=== PATIENT | female | born 1980 | race Caucasian/White ===

== ENCOUNTER 2016-10-01 13:09 | Observation (INO) | payer OTHER ==
--- NOTE | 2016-10-01 13:52 | PDOC ---
Attending Attestation - Resident Resident Name: Scott Skelton - ED Attending Attestation I have performed the following: I have examined & evaluated the patient, The case was reviewed & discussed with the resident, I agree w/resident's findings & plan, Exceptions are as noted - HPI HPI: 10/01/16 14:07 The patient is a 36 year old female with a significant past medical history of HIV/AIDS (last CD4 150 /VL 120) who presents with several days of right lower quadrant pain. She denies fever/chills. She denies urinary symptoms. She denies vaginal discharge. She denies anorexia. Laboratory Tests 07/10/16 07/10/16 12:00 12:00 Absolute CD4 [place] 150 L HIV-1 RNA (PCR) 120 10/01/16 15:39 10/01/16 15:40 - Physicial Exam PE: 10/01/16 13:52 Vitals noted She is well-appearing and in no acute distress She has mild right lower quadrant tenderness on deep palpation 10/01/16 14:07 10/01/16 14:11 10/01/16 16:22 10/01/16 16:24 - Medical Decision Making 10/01/16 14:11 Will obtain labs and UA 10/01/16 15:40 CBC noted She will need CT given her immunocompromised status 10/01/16 16:22 Elevated lipase noted She does not have any epigastric tenderness I do not suspect pancreatitis Will await CT and Chemistries 10/01/16 16:25 10/01/16 16:29 Case discussed in detail with oncoming Emergency Physician including history, physical exam and ancillary studies. Oncoming Emergency Physician has assumed care for the patient and will complete the evaluation and treatment. Discharge Disposition - Diagnosis Abdominal pain, right lower quadrant - Referrals Referrals: Bernie Kearney, GLASS BREAKER [Primary Care Provider] -
--- NOTE | 2016-10-01 14:35 | PDOC ---
History of Present Illness - General Chief Complaint: Pain Stated Complaint: ABD PAIN (PCP SENT) Time Seen by Provider: 10/01/16 13:52 History Source: Patient Exam Limitations: No Limitations - History of Present Illness Travel History: No Initial Comments: 10/01/16 14:23 36 yo F with significant PMHx of HTN, ETOH abuse, and HIV presents with 4 day history of RLQ abdominal pain. She describes constant non-radiating 8/10 stabbing RLQ abdominal pain brought on by palpation without alleviating factors. Denies urinary symptoms or vaginal bleeding or discharge. LMP 09/07/16 had Urine test at PCP office which was negative today. Denies fevers, chills, nausea,or vomiting. Timing/Duration: reports: constant, getting worse Quality: reports: moderate Abdominal Pain Onset Location: reports: RLQ Pain Radiation: reports: no radiation Activities at Onset: reports: none Past History - Travel Traveled outside of the country in the last 30 days: No Close contact w/someone who was outside of country & ill: No - Past Medical History Allergies/Adverse Reactions: Allergies Allergy/AdvReac Type Severity Reaction Status Date / Time No Known Allergies Allergy Verified 10/01/16 13:13 Home Medications: Ambulatory Orders Cholecalciferol (Vitamin D3) [Vitamin D3] 50,000 unit PO WEEKLY #4 capsule 07/17 Potassium Chloride [K-Dur -] 20 meq PO DAILY #3 tablet.er 07/17/16 Docusate Sodium [Colace -] 100 mg PO TID PRN #90 capsule 08/27/16 Elviteg/Klarissa/Emtric/Tenofo Ala [Genvoya Tablet] 1 each PO DAILY #30 tablet 08/27 Ferrous Sulfate [Feosol] 325 mg PO TID #90 tablet 08/27/16 Loratadine [Claritin -] 10 mg PO DAILY #30 tablet 08/27/16 Multivitamin,Ther and Minerals [Vitamin and Minerals] 1 each PO DAILY #30 tablet 08/27/16 Vitamin B Complex 1 each PO DAILY #30 capsule 08/27/16 Omeprazole 20 mg PO DAILY PRN #30 capsule. 09/16/16 Magnesium Oxide [Mag-Ox -] 400 mg PO BID #14 tablet 09/21/16 Anemia: Yes Diabetes: No HIV: Yes Psychiatric Problems: Yes (depression, suicide attempt) - Immunization History Immunization Up to Date: Yes - Psycho/Social/Smoking Cessation Hx Anxiety: No Suicidal Ideation: No Smoking History: Never smoked Have you smoked in the past 12 months: No Number of Cigarettes Smoked Daily: 0 If you are a former smoker, when did you quit?: 2 weeks ago Cigars Per Day: 0 Information on smoking cessation initiated: No Hx Alcohol Use: No Drug/Substance Use Hx: No Substance Use Type: None Hx Substance Use Treatment: No Review of Systems - Review of Systems Able to Perform ROS?: Yes Is the patient limited Wolof proficient: No ABD/GI: Yes: Abdominal cramping : No: Discharge, Flank Pain, Hematuria, Pain All Other Systems: Reviewed and Negative *Physical Exam - Vital Signs Last Vital Signs Temp Pulse Resp BP Pulse Ox 98.1 F 72 18 122/75 98 10/01/16 13:10 10/01/16 13:10 10/01/16 13:10 10/01/16 13:10 10/01/16 13:10 - Physical Exam General Appearance: Yes: Mild Distress HEENT: positive: EOMI, SETH Neck: positive: Supple Respiratory/Chest: positive: Lungs Clear, Normal Breath Sounds. negative: Respiratory Distress, Accessory Muscle Use Cardiovascular: positive: Regular Rhythm, Regular Rate, S1, S2. negative: Edema , JVD, Murmur Vascular Pulses: Dorsalis-Pedis (R): 2+, Doralis-Pedis (L): 2+ Gastrointestinal/Abdominal: positive: Normal Bowel Sounds, Soft, Guarding, Tenderness (RLQ) Musculoskeletal: positive: Normal Inspection. negative: CVA Tenderness Extremity: positive: Normal Capillary Refill, Normal Inspection, Normal Range of Motion Integumentary: positive: Normal Color, Dry, Warm. negative: Cyanotic, Erythema , Jaundice Neurologic: positive: food court team member II-XII NML intact, Fully Oriented, Alert, Normal Mood/ Affect, Normal Response, Motor Strength 10/02 ED Treatment Course - LABORATORY CBC & Chemistry Diagram: 10/01/16 14:40 10/01/16 14:40 - ADDITIONAL ORDERS Additional order review: 10/01/16 16:45 Laboratory Tests 05/14/14 07/10/16 13:05 12:00 Absolute CD4 [place] 150 L Hepatitis A Ab Total Positive H Medical Decision Making - Medical Decision Making 10/01/16 16:41 A:36 yo F with significant PMHx of HTN, ETOH abuse, and HIV presents with 4 day history of RLQ abdominal pain. will send labs to r/o appendicitis or infectious process. P: * CBC, CMP, UA, Lipase * CT abdomen and pelvis with IV/PO contrast *DC/Admit/Observation/Transfer Diagnosis at time of Disposition: Abdominal pain, right lower quadrant - Referrals Referrals: Bernie Kearney, DEVICE TEST ENGINEER [Primary Care Provider] -
[2016-10-01 15:23] LABS: BASOPHIL 1.1 % (0-2.0); EOSINOPHIL 4.3 % (0-4.5); MCH 32.9 pg (25.7-33.7); MCHC 33.7 g/dl (32.0-36.0); MEAN CELL VOLUME 97.6 fl (80-96); MEAN PLT VOLUME 8.4 fl (7.5-11.1); NEUTROPHILS 58.1 % (42.8-82.8); PLATELET COUNT 173 K/MM3 (134-434); RDW 18.7 % (11.6-15.6); WHITE BLOOD COUNT 2.8 K/mm3 (4.0-10.0)
[2016-10-01 15:59] LABS: ALBUMIN 2.9 g/dl (3.4-5.0); ALK PHOS 43 U/L (45-117); ANION GAP 7 (8-16); BILIRUBIN,TOTAL 0.3 mg/dL (0.2-1.0); C-REACTIVE PROTEIN < 0.3 MG/DL (0.00-0.3); CALCIUM 8.4 mg/dL (8.5-10.1); CO2 28 mmol/L (21-32); COCKROFT - GAULT 112.4465; CREATININE 0.7 mg/dL (0.55-1.02); GLUCOSE,RANDOM 82 mg/dL (74-106); SGOT/AST 33 U/L (15-37); SGPT/ALT 29 U/L (12-78); TOT PROT 8.3 g/dl (6.4-8.2)
[2016-10-01 16:29] LABS: URINE APPEARANCE CLEAR; URINE BILIRUBIN NEGATIVE (NEGATIVE); URINE BLOOD NEGATIVE (NEGATIVE); URINE COLOR LTYELLOW; URINE GLUCOSE (UA) NEGATIVE (NEGATIVE); URINE KETONE NEGATIVE (NEGATIVE); URINE NITRITE NEGATIVE (NEGATIVE); URINE PROTEIN NEGATIVE (NEGATIVE); URINE UROBILINOGEN NEGATIVE E.U./dl (0.2-1.0)
[2016-10-01 16:40] LABS: URINE LEUK ESTERASE 2+ (NEGATIVE)
[2016-10-01 18:11] LABS: URINE HYALINE CAST 1 /lpf; URINE RBC 1 /hpf (0-3); URINE WBC 2 /hpf (3-5)
--- NOTE | 2016-10-01 21:29 | PDOC ---
*Physical Exam - Vital Signs Last Vital Signs Temp Pulse Resp BP Pulse Ox 98.1 F 72 18 122/75 98 10/01/16 13:10 10/01/16 13:10 10/01/16 13:10 10/01/16 13:10 10/01/16 13:10 <Gaetano Keith - Last Filed: 10/01/16 22:26> - Vital Signs Last Vital Signs Temp Pulse Resp BP Pulse Ox 98.1 F 72 18 122/75 98 10/01/16 13:10 10/01/16 13:10 10/01/16 13:10 10/01/16 13:10 10/01/16 13:10 <Raúl Vogel - Last Filed: 10/01/16 23:44> ED Treatment Course - LABORATORY CBC & Chemistry Diagram: 10/01/16 14:40 10/01/16 14:40 - ADDITIONAL ORDERS Additional order review: Laboratory Results 10/01/16 10/01/16 10/01/16 15:23 14:40 14:40 Sodium 137 Potassium 3.6 Chloride 102 Carbon Dioxide 28 Anion Gap 7 L BUN 9 D Creatinine 0.7 Creat Clearance w eGFR > 60 Random Glucose 82 Calcium 8.4 L Total Bilirubin 0.3 D AST 33 ALT 29 D Alkaline Phosphatase 43 L D C-Reactive Protein < 0.3 Total Protein 8.3 H Albumin 2.9 L Lipase 440 H Urine Color Ltyellow Urine Appearance Clear Urine pH 7.0 D Urine Protein Negative Urine Glucose (UA) Negative Urine Ketones Negative Urine Blood Negative Urine Nitrite Negative Urine Bilirubin Negative Urine Urobilinogen Negative Ur Leukocyte Esterase 2+ H Urine RBC 1 Urine WBC 2 Ur Epithelial Cells Few Hyaline Casts 1 10/01/16 14:40 RBC 3.30 L MCV 97.6 H MCHC 33.7 RDW 18.7 H MPV 8.4 Neutrophils % 58.1 Lymphocytes % 25.2 D Monocytes % 11.3 H Eosinophils % 4.3 Basophils % 1.1 <Gaetano Keith - Last Filed: 10/01/16 22:26> - LABORATORY CBC & Chemistry Diagram: 10/01/16 14:40 10/01/16 14:40 - ADDITIONAL ORDERS Additional order review: Laboratory Results 10/01/16 10/01/16 10/01/16 15:23 14:40 14:40 Sodium 137 Potassium 3.6 Chloride 102 Carbon Dioxide 28 Anion Gap 7 L BUN 9 D Creatinine 0.7 Creat Clearance w eGFR > 60 Random Glucose 82 Calcium 8.4 L Total Bilirubin 0.3 D AST 33 ALT 29 D Alkaline Phosphatase 43 L D C-Reactive Protein < 0.3 Total Protein 8.3 H Albumin 2.9 L Lipase 440 H Urine Color Ltyellow Urine Appearance Clear Urine pH 7.0 D Urine Protein Negative Urine Glucose (UA) Negative Urine Ketones Negative Urine Blood Negative Urine Nitrite Negative Urine Bilirubin Negative Urine Urobilinogen Negative Ur Leukocyte Esterase 2+ H Urine RBC 1 Urine WBC 2 Ur Epithelial Cells Few Hyaline Casts 1 10/01/16 14:40 RBC 3.30 L MCV 97.6 H MCHC 33.7 RDW 18.7 H MPV 8.4 Neutrophils % 58.1 Lymphocytes % 25.2 D Monocytes % 11.3 H Eosinophils % 4.3 Basophils % 1.1 <Raúl Vogel - Last Filed: 10/01/16 23:44> Medical Decision Making - Medical Decision Making CBCD WBC 2.8 K/mm3 (4.0-10.0) L 10/01/16 14:40 RBC 3.30 M/mm3 (3.60-5.2) L 10/01/16 14:40 Hgb 10.9 GM/dL (10.7-15.3) 10/01/16 14:40 Hct 32.2 % (32.4-45.2) L 10/01/16 14:40 MCV 97.6 fl (80-96) H 10/01/16 14:40 MCHC 33.7 g/dl (32.0-36.0) 10/01/16 14:40 RDW 18.7 % (11.6-15.6) H 10/01/16 14:40 Plt Count 173 K/MM3 (134-434) 10/01/16 14:40 MPV 8.4 fl (7.5-11.1) 10/01/16 14:40 CMP Sodium 137 mmol/L (136-145) 10/01/16 14:40 Potassium 3.6 mmol/L (3.5-5.1) 10/01/16 14:40 Chloride 102 mmol/L (98-107) 10/01/16 14:40 Carbon Dioxide 28 mmol/L (21-32) 10/01/16 14:40 Anion Gap 7 (8-16) L 10/01/16 14:40 BUN 9 mg/dL (7-18) D 10/01/16 14:40 Creatinine 0.7 mg/dL (0.55-1.02) 10/01/16 14:40 Creat Clearance w eGFR > 60 (>60) 10/01/16 14:40 Calcium 8.4 mg/dL (8.5-10.1) L 10/01/16 14:40 Total Bilirubin 0.3 mg/dL (0.2-1.0) D 10/01/16 14:40 AST 33 U/L (15-37) 10/01/16 14:40 ALT 29 U/L (12-78) D 10/01/16 14:40 Alkaline Phosphatase 43 U/L (45-117) L D 10/01/16 14:40 Total Protein 8.3 g/dl (6.4-8.2) H 10/01/16 14:40 Albumin 2.9 g/dl (3.4-5.0) L 10/01/16 14:40 <Gaetano Keith - Last Filed: 10/01/16 22:26> *DC/Admit/Observation/Transfer - Attestations Scribe Attestion: 10/01/16 22:26 Documentation prepared by Gaetano Keith, acting as medical care manager for Raúl Vogel DO. <Gaetano Keith - Last Filed: 10/01/16 22:26> - Discharge Dispostion Admit: Yes - Attestations Physician Attestion: 10/01/16 21:29 I, Dr. Raúl Vogel, attest that this document has been prepared under my direction and personally reviewed by me in its entirety. I further attest, that it accurately reflects all work, treatment, procedures and medical decision -making performed by me. <Raúl Vogel - Last Filed: 10/01/16 23:44> Diagnosis at time of Disposition: Abdominal pain, right lower quadrant, Pancreatitis - Discharge Dispostion Condition at time of disposition: Unchanged/Unknown - Referrals Referrals: Christel,Bernie, INSURANCE ACCOUNT ASSISTANT [Primary Care Provider] - - Patient Instructions - Post Discharge Activity
--- NOTE | 2016-10-01 22:02 | HP ---
CHIEF COMPLAINT:RLQ Pain PCP: Bernie Kearney NP HISTORY OF PRESENT ILLNESS: Patient is a 36 year old female with significant PMH of HIV, HTN, Depression, Anemia & alcohol abuse (last binge drank 5 days ago) who comes from GARRY Kearney's office with abdominal pain. As per patient, she binge drank on Wednesday and woke up Wednesday with moderate RLQ pain and epigastric burning sensation. Patient reports pain was diffuse but concentrasted in RLQ, nonradiating, stabbing in quality & 8/10 in severity. She had an episode of vomiting that morning as well , nonbloody nonbilious. She also had 2-3 episodes of diarrhea as well on Wednesday. She states pain was present on Wednesday & Wednesday but started improving by Wednesday. Today, she visited her PCP who instructed her to come to ED. Denies fever, chills, SOB, chest pain, palpitations, headache, visual changes, diarrhea or constipation at present. No loss of appetite. LMP 09/07/2016 CITLALI SCORE 0 on admission [facility] course was notable for: (1)Lipase 440 (2)CT shows right adnexal cystic structure [id number] (3) NPO 7 IVF started Recent Travel: none reported PAST MEDICAL HISTORY: as above PAST SURGICAL HISTORY: none reported Social History: Smoking:none reported Alcohol: states she has been a heavy drinker "for a long time", last drank on Wednesday ("I had alot of drinks") Drugs:none reported Family History: patient unsure Allergies No Known Allergies Allergy (Verified 10/01/16 13:13) HOME MEDICATIONS: Home Medications Medication Instructions Recorded Cholecalciferol (Vitamin D3) 50,000 unit PO WEEKLY #4 capsule 07/17/16 [Vitamin D3] Potassium Chloride [K-Dur -] 20 meq PO DAILY #3 tablet.er 07/17/16 Docusate Sodium [Colace -] 100 mg PO TID PRN #90 capsule 08/27/16 Elviteg/Klarissa/Emtric/Tenofo Ala 1 each PO DAILY #30 tablet 08/27/16 [Genvoya Tablet] Ferrous Sulfate [Feosol] 325 mg PO TID #90 tablet 08/27/16 Loratadine [Claritin -] 10 mg PO DAILY #30 tablet 03/30/17 Multivitamin,Ther and Minerals 1 each PO DAILY #30 tablet 08/27/16 [Vitamin and Minerals] Vitamin B Complex 1 each PO DAILY #30 capsule 08/27/16 Omeprazole 20 mg PO DAILY PRN #30 capsule. 09/16/16 Magnesium Oxide [Mag-Ox -] 400 mg PO BID #14 tablet 09/21/16 REVIEW OF SYSTEMS CONSTITUTIONAL: Absent: fever, chills, diaphoresis, generalized weakness, malaise, loss of appetite, weight change HEENT: Absent: rhinorrhea, nasal congestion, throat pain, throat swelling, difficulty swallowing, mouth swelling, ear pain, eye pain, visual changes CARDIOVASCULAR: Absent: chest pain, syncope, palpitations, irregular heart rate, lightheadedness , peripheral edema RESPIRATORY: Absent: cough, shortness of breath, dyspnea with exertion, orthopnea, wheezing, stridor, hemoptysis GASTROINTESTINAL: (+) abdominal pain, Absent:abdominal distension, nausea, vomiting, diarrhea, constipation, melena, hematochezia GENITOURINARY: Absent: dysuria, frequency, urgency, hesitancy, hematuria, flank pain, genital pain MUSCULOSKELETAL: Absent: myalgia, arthralgia, joint swelling, back pain, neck pain SKIN: Absent: rash, itching, pallor HEMATOLOGIC/IMMUNOLOGIC: Absent: easy bleeding, easy bruising, lymphadenopathy, frequent infections ENDOCRINE: Absent: unexplained weight gain, unexplained weight loss, heat intolerance, cold intolerance NEUROLOGIC: Absent: headache, focal weakness or paresthesias, dizziness, unsteady gait, seizure, mental status changes, bladder or bowel incontinence PSYCHIATRIC: Absent: anxiety, depression, suicidal or homicidal ideation, hallucinations. PHYSICAL EXAMINATION Vital Signs - 24 hr 10/01/16 13:10 Temperature 98.1 F Pulse Rate 72 Respiratory 18 Rate Blood Pressure 122/75 O2 Sat by Pulse 98 Oximetry (%) GENERAL: Awake, alert, and fully oriented, in no acute distress. Eating chips in bed without pain. HEENT: Atraumatic, EOMI, PERRLA, No lymphadenopathy noted, dry membranes LUNGS: Breath sounds equal, clear to auscultation bilaterally. No wheezes, and no crackles. No accessory muscle use. HEART: Regular rate and rhythm, normal S1 and S2 without murmur, rub or gallop. ABDOMEN: Moderate tenderness to deep palpation only in RLQ. Soft, not distended with normoactive bowel sounds. No guarding, no rebound, no masses. No hepatomegaly or splenomegaly. MUSCULOSKELETAL: Normal range of motion at all joints. No bony deformities or tenderness. No CVA tenderness. UPPER EXTREMITIES: 2+ pulses, warm, well-perfused. No cyanosis. No clubbing. No peripheral edema. LOWER EXTREMITIES: 2+ pulses, warm, well-perfused. No calf tenderness. No peripheral edema. NEUROLOGICAL: Cranial nerves II-XII intact. Normal speech. Normal gait. PSYCHIATRIC: Cooperative. Good eye contact. Appropriate mood and affect. SKIN: Warm, dry, normal turgor, no rashes or lesions noted, normal capillary refill. Laboratory Results - last 24 hr 10/01/16 10/01/16 10/01/16 14:40 14:40 14:40 WBC 2.8 L RBC 3.30 L Hgb 10.9 Hct 32.2 L MCV 97.6 H MCHC 33.7 RDW 18.7 H Plt Count 173 MPV 8.4 Neutrophils % 58.1 Lymphocytes % 25.2 D Monocytes % 11.3 H Eosinophils % 4.3 Basophils % 1.1 Sodium 137 Potassium 3.6 Chloride 102 Carbon Dioxide 28 Anion Gap 7 L BUN 9 D Creatinine 0.7 Creat Clearance w eGFR > 60 Random Glucose 82 Calcium 8.4 L Total Bilirubin 0.3 D AST 33 ALT 29 D Alkaline Phosphatase 43 L D C-Reactive Protein < 0.3 Total Protein 8.3 H Albumin 2.9 L Lipase 440 H Urine Color Urine Appearance Urine pH Urine Protein Urine Glucose (UA) Urine Ketones Urine Blood Urine Nitrite Urine Bilirubin Urine Urobilinogen Ur Leukocyte Esterase Urine RBC Urine WBC Ur Epithelial Cells Hyaline Casts 10/01/16 15:23 WBC RBC Hgb Hct MCV MCHC RDW Plt Count MPV Neutrophils % Lymphocytes % Monocytes % Eosinophils % Basophils % Sodium Potassium Chloride Carbon Dioxide Anion Gap BUN Creatinine Creat Clearance w eGFR Random Glucose Calcium Total Bilirubin AST ALT Alkaline Phosphatase C-Reactive Protein Total Protein Albumin Lipase Urine Color Ltyellow Urine Appearance Clear Urine pH 7.0 D Urine Protein Negative Urine Glucose (UA) Negative Urine Ketones Negative Urine Blood Negative Urine Nitrite Negative Urine Bilirubin Negative Urine Urobilinogen Negative Ur Leukocyte Esterase 2+ H Urine RBC 1 Urine WBC 2 Ur Epithelial Cells Few Hyaline Casts 1 ASSESSMENT/PLAN: 36 year old female with significant PMH of HIV, HTN, Depression, Anemia & alcohol abuse (last binge drank 5 days ago) who comes from [facility] Christel's office with abdominal pain. #Acute Pancreatitis -IVF NS@125cc/hr -NPO -PPI IV 40mg daily -Zofran 4mg IV Q6H PRN for nausea -patient was eating large bag if chips when I entered room without any abdominal pain, likely can advance diet in AM -ordered repeat lipase, amylase in AM #Alcohol abuse hx -alcohol cessation stressed to patient -ativan 1mg IV PRN for withdrawal symtpoms -alcohol level pending -urine tox pending -Folic acid, Thiamine started #HIV -restarted Genvoya -stressed importance of medication compliance & proper followup visits with patient #HTN -not on any meds -monitor Prophylaxis/FEN -SCD's, EAM -Protonix 20mg IV daily -IVF NS@125cc/hr -Monitor electrolytes, started home dose K-Dur 20mEq PO daily Visit type - Emergency Visit Emergency Visit: Yes ED Registration Date: 10/01/16 Care time: The patient presented to the Emergency Department on the above date and was hospitalized for further evaluation of their emergent condition. - New Patient This patient is new to me today: Yes Date on this admission: 10/04/16 - Critical Care Critical Care patient: No
--- NOTE | 2016-10-01 22:25 | PN ---
<Renetta Dubon - Last Filed: 10/01/16 22:25> Teaching Attending Note Name of Resident: Darvin Latham <Angelica Hughes - Last Filed: 10/02/16 04:35> Teaching Attending Note ATTENDING PHYSICIAN STATEMENT I saw and evaluated the patient. I reviewed the resident's note and discussed the case with the resident. I agree with the resident's findings and plan as documented. SUBJECTIVE: 36 yo F presents from PCPs office with sharp RLQ pain for 4 days. Patient reports binge drinking on 5 days ago and waking up the next morning with RLQ pain and epigastric burning. Patient reports the pain is stabbing in quality, 8/ 10 in intensity and nonradiating. Patient also endorses one episode of vomiting that morning. Patient denies chest pain, palpitations and lightheadedness. Patient denies loss of appetite. PMHx: HTN, HIV/AIDS (last CD4 150 /VL 120) Social Hx: ETOH abuse OBJECTIVE: Last Vital Signs Temp Pulse Resp BP Pulse Ox 98.8 F 74 20 118/76 99 10/02/16 01:32 10/02/16 01:32 10/02/16 03:24 10/02/16 01:32 10/02/16 03:24 GENERAL: Awake, alert, and fully oriented, in no acute distress HEENT: Atraumatic. PERRLA, EOMI. Moist mucosa. No JVD LUNGS: No distress, speaks full sentences, clear to auscultation bilaterally HEART: Regular rate and rhythm, normal S1 and S2, no murmurs, rubs or gallops, peripheral pulses normal and equal bilaterally. ABDOMEN: Soft, Moderate tenderness to deep palpation only in RLQ, normoactive bowel sounds. No guarding, no rebound. No masses EXTREMITIES: Normal inspection, Normal range of motion, no edema. No clubbing or Cyanosis. NEUROLOGICAL: Cranial nerves II through XII grossly intact. Normal speech, normal gait, no focal sensorimotor deficits SKIN: Warm, Dry, normal turgor, no rashes or lesions noted. CBCD WBC 2.8 K/mm3 (4.0-10.0) L 10/01/16 14:40 RBC 3.30 M/mm3 (3.60-5.2) L 10/01/16 14:40 Hgb 10.9 GM/dL (10.7-15.3) 10/01/16 14:40 Hct 32.2 % (32.4-45.2) L 10/01/16 14:40 MCV 97.6 fl (80-96) H 10/01/16 14:40 MCHC 33.7 g/dl (32.0-36.0) 10/01/16 14:40 RDW 18.7 % (11.6-15.6) H 10/01/16 14:40 Plt Count 173 K/MM3 (134-434) 10/01/16 14:40 MPV 8.4 fl (7.5-11.1) 10/01/16 14:40 CMP Sodium 137 mmol/L (136-145) 10/01/16 14:40 Potassium 3.6 mmol/L (3.5-5.1) 10/01/16 14:40 Chloride 102 mmol/L (98-107) 10/01/16 14:40 Carbon Dioxide 28 mmol/L (21-32) 10/01/16 14:40 Anion Gap 7 (8-16) L 10/01/16 14:40 BUN 9 mg/dL (7-18) D 10/01/16 14:40 Creatinine 0.7 mg/dL (0.55-1.02) 10/01/16 14:40 Creat Clearance w eGFR > 60 (>60) 10/01/16 14:40 Calcium 8.4 mg/dL (8.5-10.1) L 10/01/16 14:40 Total Bilirubin 0.3 mg/dL (0.2-1.0) D 10/01/16 14:40 AST 33 U/L (15-37) 10/01/16 14:40 ALT 29 U/L (12-78) D 10/01/16 14:40 Alkaline Phosphatase 43 U/L (45-117) L D 10/01/16 14:40 Total Protein 8.3 g/dl (6.4-8.2) H 10/01/16 14:40 Albumin 2.9 g/dl (3.4-5.0) L 10/01/16 14:40 ASSESSMENT AND PLAN: 1.) Acute Pancreatitis -NPO overnight -Tomorrow, clear liquid diet and progress as tolerated -Zofran -IVF NS -Morphine 2 mg qQ 6 hours for severe pain -Protonix 2.) ETOH abuse and pending withdrawal -Ativan PRN -Check urine tox -CIWA protocol Admit to Obs Documentation is prepared by Angelica Hughes acting as medical scientist for Renetta Dubon M.D.
[2016-10-01] MEDS ORDERED: ONDANSETRON 4 MG/2 ML VIAL IVPB PRN (22:31)
[2016-10-01] MEDS ORDERED: ACETAMINOPHEN 325 MG TABLET (FP) PO PRN (22:31)
[2016-10-01] MEDS ORDERED: LORAZEPAM CARPU-JECT 2 MG/ML DISP.SYRIN IVPUSH PRN (22:37)
[2016-10-01] MEDS ORDERED: PANTOPRAZOLE SODIUM 40 MG in SODIUM CHLORIDE 100 ML IVPB ONE (22:38)
[2016-10-01] MEDS ORDERED: SODIUM CHLORIDE 1,000 ML IV SCH ×2 (22:45→22:53)
[2016-10-01] MEDS ORDERED: PANTOPRAZOLE SODIUM 100 ML IVPB ONE (23:59)
[2016-10-02 03:18] VITALS: BMI 25.0
[2016-10-02 04:13] LABS: URINE MARIJUANA THC NEGATIVE ng/ml (CUTOFF=50)
[2016-10-02 07:58] LABS: ALBUMIN 2.9 g/dl (3.4-5.0); AMYLASE 115 U/L (25-115); ANION GAP 6 (8-16); CALCIUM 7.6 mg/dL (8.5-10.1); CO2 27 mmol/L (21-32); COCKROFT - GAULT 159.2305; CREATININE 0.5 mg/dL (0.55-1.02); GLUCOSE,RANDOM 91 mg/dL (74-106); MAGNESIUM 1.4 mg/dL (1.8-2.4); SGOT/AST 30 U/L (15-37); SGPT/ALT 26 U/L (12-78)
[2016-10-02 08:01] LABS: BASOPHIL 1.4 % (0-2.0); EOSINOPHIL 5.6 % (0-4.5); MCHC 33.8 g/dl (32.0-36.0); MEAN CELL VOLUME 97.6 fl (80-96); MEAN PLT VOLUME 8.7 fl (7.5-11.1); NEUTROPHILS 52.2 % (42.8-82.8); PLATELET COUNT 180 K/MM3 (134-434); RDW 18.5 % (11.6-15.6); WHITE BLOOD COUNT 2.3 K/mm3 (4.0-10.0)
[2016-10-02 08:03] LABS: ALK PHOS 43 U/L (45-117); BILIRUBIN,TOTAL 0.3 mg/dL (0.2-1.0); PHOSPHOROUS 2.9 mg/dL (2.5-4.9); TOT PROT 8.2 g/dl (6.4-8.2)
[2016-10-02] MEDS: DOCUSATE SODIUM 100 MG CAPSULE (FP) PO SCH ×2 (09:30→12:18)
[2016-10-02] MEDS: POTASSIUM CHLORIDE TABS 20 MEQ TABLET.ER (FP) PO SCH ×2 (09:31→12:18)
[2016-10-02] MEDS: MULTIVITAMINS (DAILY MVI) TABLET (FP) PO SCH ×2 (09:31→12:18)
[2016-10-02] MEDS: THIAMINE HCL 100 MG TABLET (FP) PO SCH ×2 (09:31→12:18)
[2016-10-02] MEDS: FOLIC ACID 1 MG TABLET (FP) PO SCH ×2 (09:31→12:18)
[2016-10-02] MEDS ORDERED: PANTOPRAZOLE SODIUM 40 MG/100 ML PRE-DOCKED IVPB SCH (10:00)
[2016-10-02] MEDS ORDERED: PANTOPRAZOLE SODIUM 40 MG in SODIUM CHLORIDE 100 ML IVPB SCH (10:00)
[2016-10-02 10:08] LABS: LDH 135 U/L (84-246)
[2016-10-02] MEDS ORDERED: POLYETHYLENE GLYCOL 3350 119 GM BTL PO ONE (10:24)
[2016-10-02] MEDS ORDERED: LACTULOSE 20 GM/30 ML UDC (FOR ORAL USE ONLY) PO ONE (11:00)
--- NOTE | 2016-10-02 14:36 | PN ---
Teaching Attending Note Name of Resident: Scott Skelton ATTENDING PHYSICIAN STATEMENT I saw and evaluated the patient. I reviewed the resident's note and discussed the case with the resident. I agree with the resident's findings and plan as documented. SUBJECTIVE: denies abd pain , or fever , no N/V,denies dysuria . constipated , small hard BM yesterday, diarrhea 1 week ago OBJECTIVE: NAD awake and alert CV: RRR HEENT: MMM, no facial droop Lungs: CTAB Abd : soft, ND, NL BS , TTP in RLQ , with no rebound tenderness or guarding. Ext: no edema A/P : 36 y/o lady with h/o ALcohol abuse , who presented with abd pain. 1- Abd pain: although her lipase is elevated , she does not clinically or on CT scan has acute pancreatitis . her Abd pain is localized in RLQ , and CT scan shows an adenexial cyst. U transvaginal US showed possible hemorrhagic cyst . no torsion or signs of infection likely this cyst is causing the pain. Stomach wall is thick on CT scan . ? gastritis . bladder is distended and colon with plenty of stool. - give PPI - check stool HP Ag - treat constipation with lactulose, miralax. - check post void bladder scan . - advised against alcohol use - f/u with WIRE INSPECTOR fro hemorrhagic cyst. anastasia repeat US next cycle - start a diet - dc IVF 2- Alcohol abuse: no signs of withdrawal . dispo : dc home today
--- NOTE | 2016-10-02 14:50 | PN ---
Physical Exam: SUBJECTIVE: Patient seen and examined OBJECTIVE: Vital Signs Period Temp Pulse Resp BP Sys/Echeverria Pulse Ox Last 24 Hr 98.2 F-98.8 F 64-74 17-20 118-148/76-78 99-99 GENERAL: AAOx3, NAD HEAD: NC/AT. EYES: PERRL, sclera anicteric, conjunctiva clear. No ptosis. ENT: moist mucous membranes. NECK: supple, No JVD LUNGS: Breath sounds equal, clear to auscultation bilaterally, no wheezes, no crackles, no accessory muscle use. HEART: Regular rate and rhythm, S1, S2 3/6 Systolic murmur at APEX, rub or gallop. ABDOMEN: Soft, Right side suprapubic tenderness on deep palpation, nondistended , normoactive bowel sounds, no guarding, no rebound, no hepatosplenomegaly, no masses. EXTREMITIES: 2+ pulses, warm, well-perfused, no edema. NEUROLOGICAL: Normal speech, gait not observed. PSYCH: Normal mood, normal affect. SKIN: Warm, dry, normal turgor, no rashes or lesions noted Laboratory Results - last 24 hr 10/02/16 10/02/16 10/02/16 03:25 05:35 05:35 WBC 2.3 L RBC 3.16 L Hgb 10.4 L Hct 30.8 L MCV 97.6 H MCHC 33.8 RDW 18.5 H Plt Count 180 MPV 8.7 Neutrophils % 52.2 Lymphocytes % 27.4 Monocytes % 13.4 H Eosinophils % 5.6 H Basophils % 1.4 Sodium 138 Potassium 3.5 Chloride 105 Carbon Dioxide 27 Anion Gap 6 L BUN 7 D Creatinine 0.5 L D Creat Clearance w eGFR > 60 Random Glucose 91 Calcium 7.6 L Phosphorus 2.9 Magnesium 1.4 L D Total Bilirubin 0.3 AST 30 ALT 26 Alkaline Phosphatase 43 L LD Total 135 D Total Protein 8.2 Albumin 2.9 L Total Amylase 115 Lipase 231 Opiates Screen Negative Methadone Screen Negative Barbiturate Screen Negative Phencyclidine Screen Negative Ur Amphetamines Screen Negative MDMA (Ecstasy) Screen Negative Benzodiazepines Screen Negative Cocaine Screen Negative U Marijuana (THC) Screen Negative 10/02/16 05:35 WBC RBC Hgb Hct MCV MCHC RDW Plt Count MPV Neutrophils % Lymphocytes % Monocytes % Eosinophils % Basophils % Sodium Potassium Chloride Carbon Dioxide Anion Gap BUN Creatinine Creat Clearance w eGFR Random Glucose Calcium Phosphorus Magnesium Total Bilirubin AST ALT Alkaline Phosphatase LD Total Cancelled Total Protein Albumin Total Amylase Lipase Opiates Screen Methadone Screen Barbiturate Screen Phencyclidine Screen Ur Amphetamines Screen MDMA (Ecstasy) Screen Benzodiazepines Screen Cocaine Screen U Marijuana (THC) Screen Active Medications Generic Name Dose Route Start Last Admin Trade Name Freq PRN Reason Stop Dose Admin Acetaminophen 650 mg 10/01/16 22:31 Tylenol - PO Q4H PRN FEVER OR PAIN Docusate Sodium 100 mg 10/02/16 10:00 10/02/16 12:18 Colace - PO 100 mg BID ESAU Administration Folic Acid 1 mg 10/02/16 10:00 10/02/16 12:18 Folic Acid - PO 1 mg DAILY ESAU Administration Lorazepam 1 mg 10/01/16 22:37 Ativan Injection - IVPUSH BID PRN WITHDRAWAL(CONT SUBST) Multivitamins/Minerals/Vitamin C 1 tab 10/02/16 10:00 10/02/16 12:18 Tab-A-Vit - PO 1 tab DAILY ESAU Administration Non-Formulary Medication 1 each 10/02/16 10:00 Elviteg/Klarissa/Emtric/Tenofo Ala [Genvoya Tablet] PO DAILY ESAU Ondansetron HCl 4 mg 10/01/16 22:31 Zofran Injection IVPB Q6H PRN NAUSEA Pantoprazole Sodium 40 mg 10/02/16 10:00 10/02/16 09:36 Protonix 40mg Ivpb (Pre-Docked) IVPB 40 mg DAILY ESAU Administration Potassium Chloride 20 meq 10/02/16 10:00 10/02/16 12:18 K-Dur - PO 20 meq DAILY ESAU Administration Thiamine HCl 100 mg 10/02/16 10:00 10/02/16 12:18 Vitamin B1 - PO 100 mg BID ESAU Administration ASSESSMENT/PLAN: 36 yo F with PMHx of HIV and ETOH abuse admitted for abdominal pain. Problem List - Problems (1) Abdominal pain, right lower quadrant (2) Chronic alcoholism (3) Human immunodeficiency virus [HIV] disease Code(s): B20 - HUMAN IMMUNODEFICIENCY VIRUS [HIV] DISEASE Visit type - Emergency Visit Emergency Visit: Yes ED Registration Date: 10/01/16 Care time: The patient presented to the Emergency Department on the above date and was hospitalized for further evaluation of their emergent condition. - New Patient This patient is new to me today: No - Critical Care Critical Care patient: No
[2016-10-02] MEDS ORDERED: SODIUM PHOSPHATE/NA BIPHOS 133 ML ENEMA PR ONE (17:13)
--- NOTE | 2016-10-02 17:30 | DS ---
Physical Exam: SUBJECTIVE: Patient seen and examined at bedside. No overnight events. No new complaints. Pain has improved. Denies CP, GARNICA, SOB, abd. pain , N/V. OBJECTIVE: Vital Signs Period Temp Pulse Resp BP Sys/Echeverria Pulse Ox Last 24 Hr 97.9 F-98.8 F 64-74 17-20 118-148/76-78 99-99 PHYSICAL EXAM GENERAL: AAOx3, NAD HEAD: NC/AT. EYES: PERRL, sclera anicteric, conjunctiva clear. No ptosis. ENT: moist mucous membranes. NECK: supple, No JVD LUNGS: Breath sounds equal, clear to auscultation bilaterally, no wheezes, no crackles, no accessory muscle use. HEART: Regular rate and rhythm, S1, S2 3/6 Systolic murmur at APEX, rub or gallop. ABDOMEN: Soft, Right side suprapubic tenderness on deep palpation, nondistended , normoactive bowel sounds, no guarding, no rebound, no hepatosplenomegaly, no masses. EXTREMITIES: 2+ pulses, warm, well-perfused, no edema. NEUROLOGICAL: Normal speech, gait not observed. PSYCH: Normal mood, normal affect. SKIN: Warm, dry, normal turgor, no rashes or lesions noted LABS Laboratory Results - last 24 hr 10/02/16 10/02/16 10/02/16 03:25 05:35 05:35 WBC 2.3 L RBC 3.16 L Hgb 10.4 L Hct 30.8 L MCV 97.6 H MCHC 33.8 RDW 18.5 H Plt Count 180 MPV 8.7 Neutrophils % 52.2 Lymphocytes % 27.4 Monocytes % 13.4 H Eosinophils % 5.6 H Basophils % 1.4 Sodium 138 Potassium 3.5 Chloride 105 Carbon Dioxide 27 Anion Gap 6 L BUN 7 D Creatinine 0.5 L D Creat Clearance w eGFR > 60 Random Glucose 91 Calcium 7.6 L Phosphorus 2.9 Magnesium 1.4 L D Total Bilirubin 0.3 AST 30 ALT 26 Alkaline Phosphatase 43 L LD Total 135 D Total Protein 8.2 Albumin 2.9 L Total Amylase 115 Lipase 231 Opiates Screen Negative Methadone Screen Negative Barbiturate Screen Negative Phencyclidine Screen Negative Ur Amphetamines Screen Negative MDMA (Ecstasy) Screen Negative Benzodiazepines Screen Negative Cocaine Screen Negative U Marijuana (THC) Screen Negative 10/02/16 05:35 WBC RBC Hgb Hct MCV MCHC RDW Plt Count MPV Neutrophils % Lymphocytes % Monocytes % Eosinophils % Basophils % Sodium Potassium Chloride Carbon Dioxide Anion Gap BUN Creatinine Creat Clearance w eGFR Random Glucose Calcium Phosphorus Magnesium Total Bilirubin AST ALT Alkaline Phosphatase LD Total Cancelled Total Protein Albumin Total Amylase Lipase Opiates Screen Methadone Screen Barbiturate Screen Phencyclidine Screen Ur Amphetamines Screen MDMA (Ecstasy) Screen Benzodiazepines Screen Cocaine Screen U Marijuana (THC) Screen IMAGING: * CT/ABDOMEN PELVIS CT WITH CONTR Abdomen and pelvis CT with intravenous contrast Clinical information: abdominal pain A nonspecific approximately 6 x 4.7 x 4.7 cm right adnexal low-attenuation structure is seen containing slightly increased internal density. There is a mildly thickened internal septation. No obvious soft tissue nodularity is identified. Correlate with sonography. There is no evidence of free intraperitoneal fluid, bowel obstruction pneumoperitoneum. The appendix is not definitely visualized. There are no indirect CT signs of acute appendicitis. No evidence of acute diverticulitis. The liver, spleen, pancreas, gallbladder, adrenal glands and kidneys demonstrate no discrete abnormality. There is no aortic aneurysm. No definite lymphadenopathy is seen. Marked L5-S1 degenerative disc space narrowing is noted. Impression: A complex nonspecific 6 x 4.7 x 4.7 cm right adnexal cystic structure is identified. Reported By: German Laird MD 1952 * US/TRANSVAGINAL ULTRASOUND US Rule out ovarian torsion Pelvis ultrasound, transvesical and transvaginal LMP is 09/04/2016 Compared to prior pelvis ultrasound dated 05/08/2016 Uterus measures 8.4 x 4.5 cm in sagittal AP dimension. Endometrial stripe measures 7 mm in thickness. There is a complex nabothian cyst in the cervix measuring 1.5 x 1.2 cm. A few other smaller nabothian cysts are present. In the right adnexa, the right ovary measures 5.5 x 4.3 cm with a large complex cyst measuring 4.7 x 4.2 cm that contains internal echoes and likely septations. An adjacent smaller cyst is present measuring 2.2 x 1.1 cm. Normal vascular flow. The left ovary measures 2.7 x 2.3 cm and it appears unremarkable with normal vascular flow. There is no free fluid in the cul-de-sac. IMPRESSION: Complex right ovarian cyst measuring 4.7 x 4.2 cm with internal echoes and septations likely representing a hemorrhagic cyst that was not present on prior pelvis ultrasound. Follow-up ultrasound in first week of the next menstrual cycle is recommended for further evaluation. Normal arterial flow in both ovaries without evidence of torsion Reported By: Eh Saleh MD 10/02/16 1208 HOSPITAL COURSE: 36 yo F with PMHx of ETOH abuse and HIV presented with abdominal pain. CT abdomen reveled thickened stomach and ovarian cyst. She was left NPO initially because possible pancreatitis given elevated lipase and tylenol for pain. Although elevated lipase there was no clinical or CT evidence of pancreatitis, no follow up necessary. Transvaginal US shows hemorrhagic cyst with no evidence torsion or signs of infection. Will need follow up with OBGYN during first week on next menstruation. For thickened stomach sent stool for H.pylori Ag. and will discharge with PPI. Stool impaction given Lactulose and enema. Will discharge with senna,colace, and miralax. Told to abstain from alcohol and continue home medications especially HIV meds. Clinically stable at time of discharge. Date of Admission:10/01/16 Date of Discharge: 10/02/16 Minutes to complete discharge: 38 Discharge Summary Reason For Visit: PANCREATITIS Current Active Problems Abdominal pain, right lower quadrant (Acute) Ovarian cyst (Acute) Chronic alcoholism (Chronic) Human immunodeficiency virus [HIV] disease (Chronic) Condition: Stable - Instructions Diet, Activity, Other Instructions: You will need to follow up [facility] ( Dr. Delarosa ) . You will need an Ultrasound for cyst during the first week of your next menstrual cycle. Abstain from alcohol consumption. You will also need follow up with [facility] ( Dr. Estevez) Regular diet. Increase activity as tolerated. Continue home meds. Referrals: Bernie Kearney NP [Primary Care Provider] - 1 Week Flor Estevez MD [Staff Physician] - Noman Delarosa MD [Staff Physician] - 1 Week Disposition: HOME - Home Medications Comprehensive Discharge Medication List: Ambulatory Orders Cholecalciferol (Vitamin D3) [Vitamin D3] 50,000 unit PO WEEKLY #4 capsule 07/17 Potassium Chloride [K-Dur -] 20 meq PO DAILY #3 tablet.er 07/17/16 Docusate Sodium [Colace -] 100 mg PO TID PRN #90 capsule 08/27/16 Elviteg/Klarissa/Emtric/Tenofo Ala [Genvoya Tablet] 1 each PO DAILY #30 tablet 08/27 Ferrous Sulfate [Feosol] 325 mg PO TID #90 tablet 08/27/16 Loratadine [Claritin -] 10 mg PO DAILY #30 tablet 08/27/16 Multivitamin,Ther and Minerals [Vitamin and Minerals] 1 each PO DAILY #30 tablet 08/27/16 Vitamin B Complex 1 each PO DAILY #30 capsule 08/27/16 Omeprazole 20 mg PO DAILY PRN #30 capsule. 09/16/16 Magnesium Oxide [Mag-Ox -] 400 mg PO BID #14 tablet 09/21/16 Sennosides [Senna] 8.6 mg PO HS #60 tablet 10/02/16 Problem List - Problems (1) Abdominal pain, right lower quadrant (2) Chronic alcoholism (3) Human immunodeficiency virus [HIV] disease Code(s): B20 - HUMAN IMMUNODEFICIENCY VIRUS [HIV] DISEASE This patient is new to me today: Yes Date on this admission: 10/02/16 Emergency Visit: Yes ED Registration Date: 10/01/16 Care time: The patient presented to the Emergency Department on the above date and was hospitalized for further evaluation of their emergent condition. Critical Care patient: No - Discharge Referral Referred to [facility] No
[2016-10-02 17:53] VITALS: BP 135/92; PULSE 78; TEMP 98.2
== END 2016-10-02 20:29 | disposition home or self-care (01) ==
LOC: JER 13:09 → JERBED 23:44 → INTOOBSV 23:54 → JERBED 23:54 → UNDOADMOB 23:54 → J6S 10-02 02:40
PROVIDERS: ADMIT Internal Medicine; ATTEND Internal Medicine
PROC: 3E033GC Introduction of Other Therapeutic Substance into Peripheral Vein, Percutaneous Approach (ICD-10-PCS; principal; 2016-10-01)
PROC: 3E0337Z Introduction of Electrolytic and Water Balance Substance into Peripheral Vein, Percutaneous Approach (ICD-10-PCS; 2016-10-01)
DX: K85.90 Acute pancreatitis without necrosis or infection, unspecified (principal); D64.9 Anemia, unspecified; I10 Essential (primary) hypertension; F10.20 Alcohol dependence, uncomplicated; F32.9 Major depressive disorder, single episode, unspecified; Z59.0 Homelessness; B20 Human immunodeficiency virus [HIV] disease; N83.201 Unspecified ovarian cyst, right side
CPT/HCPCS: 36415; 74177-TC; 76830-TC; 80053; 80307; 81003; 81015; 82150; 83615; 83690; 83735; 84100; 85025; 86140; 87338; 99285-25; G0378

== ENCOUNTER → 2019-01-31 | Outpatient (CLI) | payer OTHER | LOC: YHH 14:02 ==

== ENCOUNTER 2022-08-03 03:55 | Day surgery (SDC) | payer OTHER ==
[2022-07-29 12:00] VITALS: BMI 31.7
[2022-08-03] MEDS ORDERED: oxyCODONE HCL 5 MG TABLET PO PRN (08:04)
[2022-08-03] MEDS ORDERED: IBUPROFEN 400 MG TABLET (FP) PO PRN (08:04)
[2022-08-03] MEDS ORDERED: ACETAMINOPHEN 325 MG TABLET (FP) PO PRN (08:04)
[2022-08-03] MEDS ORDERED: MIDAZOLAM HCL 2 MG/2 ML SINGLE DOSE VIAL ONE ×2 (09:05→09:17)
[2022-08-03] MEDS ORDERED: PROPOFOL 20 ML ONE ×2 (09:05→09:22)
[2022-08-03] MEDS ORDERED: LIDOCAINE HCL/PF 2% SDV 5ML VIAL ONE (09:20)
[2022-08-03] MEDS ORDERED: ONDANSETRON 4 MG/2 ML VIAL ONE (09:39)
[2022-08-03] MEDS ORDERED: DEXAMETHASONE SOD PHOSPHATE 4 MG/1 ML VIAL ONE (09:39)
[2022-08-03] MEDS ORDERED: KETOROLAC TROMETHAMINE 30 MG/1 ML VIAL ONE (09:55)
[2022-08-03] MEDS ORDERED: ONDANSETRON 4 MG/2 ML VIAL IVPUSH PRN (10:04)
[2022-08-03] MEDS ORDERED: LACTATED RINGERS SOLUTION 1,000 ML IV SCH (10:15)
[2022-08-03] MEDS ORDERED: IBUPROFEN 400 MG TABLET (FP) PO ONE (11:10)
[2022-08-03 11:16] VITALS: RESP 18
[2022-08-03 12:21] VITALS: BP 120/71; PULSE 80; TEMP 98.2
== END 2022-08-03 12:36 | disposition home or self-care (01) ==
LOC: JASU-SURG 03:55
PROVIDERS: ATTEND Obstetrics & Gynecology
PROC: 0UDB8ZX Extraction of Endometrium, Via Natural or Artificial Opening Endoscopic, Diagnostic (ICD-10-PCS; principal; 2022-08-03 08:30)
DX: N92.0 Excessive and frequent menstruation with regular cycle (principal); N84.0 Polyp of corpus uteri
CPT/HCPCS: 81025; 88305-TC; 94760

== ENCOUNTER 2024-05-05 01:54 | Inpatient (IN) | payer OTHER ==
[2024-05-05 02:46] VITALS: BMI 30.3
[2024-05-05] MEDS ORDERED: MAGNESIUM HYDROX 2400MG/30ML ORAL SUSPENSION 30 ML CUP PO PRN (04:21)
[2024-05-05] MEDS ORDERED: IBUPROFEN 600 MG TABLET (FP) PO PRN (04:21)
[2024-05-05] MEDS ORDERED: NALOXONE (NARCAN) HCL 4 MG/0.1 ML SPRAY NS PRN (04:21)
[2024-05-05] MEDS ORDERED: guaiFENesin 600 MG TABLET.ER (FP) PO PRN (04:21)
[2024-05-05] MEDS ORDERED: BENZOCAINE/MENTHOL (CHLORASEPTIC ) LOZENGE MM PRN (04:21)
[2024-05-05] MEDS ORDERED: NICOTINE POLACRILEX 2 MG GUM BUC PRN (04:21)
[2024-05-05] MEDS ORDERED: POLYETHYLENE GLYCOL (HEALTHYLAX) 3350 17 GM PACKET PO PRN (04:21)
[2024-05-05] MEDS ORDERED: BENZONATATE 200 MG CAPSULE PO PRN (04:21)
[2024-05-05] MEDS ORDERED: PATIENT'S OWN MEDICATION (NON-FORMULARY) (Doxycycline Hyclate [Doxycycline Hyclate] 100 MG PO SCH (10:00)
[2024-05-05] MEDS ORDERED: metroNIDAZOLE 500 MG TABLET PO SCH (10:00)
[2024-05-05] MEDS: DOXYCYCLINE HYCLATE 100 MG CAPSULE PO SCH (11:08)
[2024-05-05] MEDS: metroNIDAZOLE 250 MG TABLET PO SCH (11:09)
[2024-05-05] MEDS: FOLIC ACID 1 MG TABLET (FP) PO SCH (11:09)
[2024-05-05] MEDS: VITAMIN B COMPLEX W/C COMBO TABLET (FP) PO SCH (11:09)
[2024-05-05] MEDS: FERROUS SO4 325 MG TABLET (FP) PO SCH (11:09)
[2024-05-05] MEDS ORDERED: TUBERCULIN PPD 5 TU/0.1ML VIAL ID ONE (11:12)
[2024-05-05] MEDS: PRENATAL VITAMINS W/ FOLIC ACID TABLET (FP) PO SCH (11:12)
[2024-05-05] MEDS: TUBERCULIN PPD 5 TU/0.1ML SYRINGE (IN PATIENT USE ONLY) ID ONE (11:14)
[2024-05-05] MEDS: NICOTINE 14 MG/24 HOURS TOPICAL PATCH TD SCH (11:16)
[2024-05-05] MEDS: CHOLECALCIFEROL (VIT D3) 1,000 UNIT (25 MCG) TABLET PO SCH (11:16)
[2024-05-05] MEDS ORDERED: ARTIFICIAL TEARS OPHTHALMIC DROPS OU PRN (17:15)
[2024-05-05 17:51] LABS: EPI CELLS >36 /uL (0-25.1); HYALINE CASTS 6 /uL (0-3.1); PH,URINE 5.5 (5.0-8.0); URINE APPEARANCE CLOUDY; URINE BACTERIA 65 /uL (0-1359); URINE BILIRUBIN NEGATIVE (NEGATIVE); URINE COLOR YELLOW; URINE GLUCOSE (UA) NEGATIVE (NEGATIVE); URINE KETONE NEGATIVE (NEGATIVE); URINE LEUK ESTERASE 2+ (NEGATIVE); URINE NITRITE NEGATIVE (NEGATIVE); URINE PROTEIN NEGATIVE (NEGATIVE); URINE RBC 10 /uL (0-23.9); URINE UROBILINOGEN 0.2 mg/dL (0.2-1.0); URINE WBC 319 /uL (0-25.8)
[2024-05-05 18:21] LABS: YEAST NONE SEEN (NEGATIVE)
[2024-05-05] MEDS: ACETAMINOPHEN 325 MG TABLET (FP) PO PRN (19:45)
[2024-05-05] MEDS: MAGNESIUM OXIDE 400 MG TABLET (FP) PO SCH (21:22)
[2024-05-05] MEDS: MELATONIN 5 MG TABLETS PO SCH (21:22)
[2024-05-05] MEDS: THIAMINE 100 MG TABLET PO SCH (21:22)
[2024-05-05] MEDS: hydrOXYzine PAMOATE 25 MG CAPSULE (FP) PO PRN (21:23)
[2024-05-06] MEDS: BICTEGRAV/EMTRICIT/TENOFOV (BIKTARVY) 50-200-25 MG TABLET PO SCH (06:29)
[2024-05-06] MEDS: CALCIUM (OYSTER SHELL) 500 MG TABLET (FP) PO SCH (09:56)
[2024-05-06 12:50] LABS: HEMATOCRIT 32.6 % (32.4-45.2); HEMOGLOBIN 10.3 GM/dL (10.7-15.3); MCH 27.6 pg (25.7-33.7); MCHC 31.7 g/dl (32.0-36.0); MEAN CELL VOLUME 87.2 fl (80-96); MEAN PLT VOLUME 9.5 fl (7.5-11.1); PLATELET COUNT 236 10^3/uL (134-434); RBC 3.73 M/mm3 (3.60-5.2); RDW 22.2 % (11.6-15.6); WHITE BLOOD COUNT 5.3 K/mm3 (4.0-10.0)
[2024-05-06 12:58] LABS: POTASSIUM 3.2 mmol/L (3.5-5.1)
[2024-05-06 13:05] LABS: CALCIUM 8.9 mg/dL (8.5-10.1)
[2024-05-06 13:08] LABS: BLOOD UREA NITROGEN 10.5 mg/dL (7-18)
[2024-05-06 13:09] LABS: CREATININE 0.8 mg/dL (0.55-1.3)
[2024-05-06 13:10] LABS: BILIRUBIN,TOTAL 0.3 mg/dL (0.2-1); TOT PROT 6.7 g/dl (6.4-8.2)
[2024-05-06] MEDS: MAG HYDROX/AL HYDROX/SIMETH 30 ML UNIT-DOSE CUP PO PRN (13:57)
[2024-05-06] MEDS: LOPERAMIDE HCL 2 MG CAPSULE PO PRN (13:57)
[2024-05-09] MEDS: DOXYCYCLINE HYCLATE 100 MG TABLET PO SCH (09:42)
[2024-05-10] MEDS ORDERED: SUVOREXANT 10 MG TABLET PO PRN (22:00)
[2024-05-15] MEDS ORDERED: SUVOREXANT 10 MG TABLET PO PRN (22:00)
[2024-05-16 07:30] VITALS: RESP 16
[2024-05-17] MEDS: IBUPROFEN 400 MG TABLET (FP) PO PRN (10:01)
[2024-05-19 07:29] VITALS: BP 113/75; PULSE 69; TEMP 97.8
[2024-05-19] MEDS: NALOXONE (NYS OPIOID OVERDOSE PROGRAM) 4 MG/0.1 ML SPRAY NS SCH (10:10)
== END 2024-05-19 10:25 | disposition home or self-care (01) | DRG 772 ==
LOC: YASAS 01:54 → Y5N 04:40
PROVIDERS: ADMIT Allergy & Immunology; ATTEND Psychiatry & Neurology Pain Medicine
PROC: HZ42ZZZ Group Counseling for Substance Abuse Treatment, Cognitive-Behavioral (ICD-10-PCS; principal; 2024-05-05)
DX: F10.20 Alcohol dependence, uncomplicated (principal); F32.A Depression, unspecified; Z21 Asymptomatic human immunodeficiency virus [HIV] infection status; D64.9 Anemia, unspecified; G47.00 Insomnia, unspecified; I10 Essential (primary) hypertension; E78.5 Hyperlipidemia, unspecified; Z87.19 Personal history of other diseases of the digestive system; Z86.19 Personal history of other infectious and parasitic diseases; Z87.42 Personal history of other diseases of the female genital tract; Z91.410 Personal history of adult physical and sexual abuse; Z63.0 Problems in relationship with spouse or partner
CPT/HCPCS: 36415; 80053; 80305; 80307; 81003; 81025; 85027; 86780; 87811; 93005; 93010

== ENCOUNTER 2024-08-02 01:21 | Inpatient (IN) | payer OTHER ==
[2024-08-02 01:25] VITALS: BMI 29.7
[2024-08-02] MEDS ORDERED: ONDANSETRON *ODT* 4 MG TABLET SL PRN (02:12)
[2024-08-02] MEDS ORDERED: MAGNESIUM HYDROX 2400MG/30ML ORAL SUSPENSION 30 ML CUP PO PRN (02:12)
[2024-08-02] MEDS ORDERED: IBUPROFEN 400 MG TABLET (FP) PO PRN (02:12)
[2024-08-02] MEDS ORDERED: DICYCLOMINE HCL 10 MG CAPSULE PO PRN (02:12)
[2024-08-02] MEDS ORDERED: POLYETHYLENE GLYCOL (HEALTHYLAX) 3350 17 GM PACKET PO PRN (02:12)
[2024-08-02] MEDS ORDERED: LOPERAMIDE HCL 2 MG CAPSULE PO PRN (02:12)
[2024-08-02] MEDS ORDERED: BISMUTH SUBSALICYLATE 524 MG/30 ML PO PRN (02:12)
[2024-08-02] MEDS ORDERED: BENZOCAINE/MENTHOL (CHLORASEPTIC ) LOZENGE MM PRN (02:12)
[2024-08-02] MEDS ORDERED: NALOXONE (NARCAN) HCL 4 MG/0.1 ML SPRAY NS PRN (02:12)
[2024-08-02] MEDS ORDERED: MAG HYDROX/AL HYDROX/SIMETH 30 ML UNIT-DOSE CUP PO PRN (02:12)
[2024-08-02] MEDS ORDERED: guaiFENesin 600 MG TABLET.ER (FP) PO PRN (02:12)
[2024-08-02] MEDS ORDERED: BENZONATATE 200 MG CAPSULE PO PRN (02:12)
[2024-08-02] MEDS ORDERED: ACETAMINOPHEN 325 MG TABLET (FP) PO PRN (02:12)
[2024-08-02] MEDS ORDERED: METHOCARBAMOL 500 MG TABLET ONE (02:40)
[2024-08-02] MEDS: LORazepam 1 MG TABLET PO PRN (02:51)
[2024-08-02] MEDS: METHOCARBAMOL 500 MG TABLET PO PRN (02:53)
[2024-08-02] MEDS: IBUPROFEN 600 MG TABLET (FP) PO PRN (03:50)
[2024-08-02] MEDS: hydrOXYzine PAMOATE 25 MG CAPSULE (FP) PO PRN (03:50)
[2024-08-02] MEDS: LORazepam 2 MG TABLET PO SCH (05:47)
[2024-08-02] MEDS: PRENATAL VITAMINS W/ FOLIC ACID TABLET (FP) PO SCH (10:20)
[2024-08-02] MEDS: BICTEGRAV/EMTRICIT/TENOFOV (BIKTARVY) 50-200-25 MG TABLET PO SCH (11:54)
[2024-08-02] MEDS: FERROUS SO4 325 MG TABLET (FP) PO SCH (11:55)
[2024-08-02] MEDS: MELATONIN 5 MG TABLETS PO SCH (22:24)
[2024-08-02] MEDS: THIAMINE 100 MG TABLET PO SCH (22:24)
[2024-08-03] MEDS ORDERED: FLU VACCINE (FLULAVAL) PF 45 MCG/0.5 ML SYRINGE 2024-2025 IM ONE (03:01)
[2024-08-03] MEDS: LORazepam 1 MG TABLET PO SCH (05:51)
[2024-08-03 09:55] LABS: CALCIUM 7.5 mg/dL (8.5-10.1)
[2024-08-03 09:56] LABS: ALBUMIN 3.4 g/dl (3.4-5.0); BLOOD UREA NITROGEN 9.9 mg/dL (7-18)
[2024-08-03 09:59] LABS: CREATININE 0.7 mg/dL (0.55-1.3)
[2024-08-03 10:00] LABS: BILIRUBIN,TOTAL 1.7 mg/dL (0.2-1); TOT PROT 7.3 g/dl (6.4-8.2)
[2024-08-03 10:01] LABS: HEMATOCRIT 34.2 % (32.4-45.2); HEMOGLOBIN 11.2 GM/dL (10.7-15.3); MCH 32.2 pg (25.7-33.7); MCHC 32.9 g/dl (32.0-36.0); MEAN CELL VOLUME 97.9 fl (80-96); MEAN PLT VOLUME 10.4 fl (7.5-11.1); PLATELET COUNT 137 10^3/uL (134-434); RBC 3.49 M/mm3 (3.60-5.2); RDW 15.1 % (11.6-15.6); WHITE BLOOD COUNT 7.3 K/mm3 (4.0-10.0)
[2024-08-03] MEDS: FLU VACCINE (FLULAVAL) PF 45 MCG/0.5 ML SYRINGE 2024-2025 IM ONE (10:12)
[2024-08-03] MEDS: POTASSIUM CHLORIDE ORAL LIQUID 20 MEQ/15 ML PO ONE (11:32)
[2024-08-03] MEDS: CALCIUM 500MG/VIT-D 200 UNITS COMBO TABLET (FP) PO SCH (15:00)
[2024-08-03] MEDS: P-EPHED 60MG/TRIPROLIDI 2.5MG TABLET PO PRN (23:06)
[2024-08-04] MEDS ORDERED: LORazepam 0.5 MG TABLET PO PRN
[2024-08-04] MEDS: LORazepam 0.5 MG TABLET PO SCH (05:55)
[2024-08-04 11:26] LABS: BLOOD UREA NITROGEN 7.8 mg/dL (7-18)
[2024-08-04 11:29] LABS: CREATININE 0.8 mg/dL (0.55-1.3)
[2024-08-04 11:33] LABS: CALCIUM 8.7 mg/dL (8.5-10.1)
[2024-08-04] MEDS: POTASSIUM CHLORIDE ORAL LIQUID 20 MEQ/15 ML PO ONE ×2 (13:58→22:16)
[2024-08-05] MEDS: LORazepam 0.5 MG TABLET PO ONE (05:46)
[2024-08-05 06:27] VITALS: RESP 16; TEMP 97.7
[2024-08-05 09:50] VITALS: BP 106/67; PULSE 90
[2024-08-05 11:10] LABS: POTASSIUM 3.6 mmol/L (3.5-5.1)
[2024-08-05 11:18] LABS: CALCIUM 9.1 mg/dL (8.5-10.1)
[2024-08-05 11:19] LABS: BLOOD UREA NITROGEN 5.3 mg/dL (7-18)
[2024-08-05 11:22] LABS: CREATININE 0.6 mg/dL (0.55-1.3)
== END 2024-08-05 10:03 | disposition home or self-care (01) | DRG 775 ==
LOC: YASAS 01:21 → Y3N 02:59
PROVIDERS: ADMIT Allergy & Immunology; ATTEND Allergy & Immunology
PROC: HZ2ZZZZ Detoxification Services for Substance Abuse Treatment (ICD-10-PCS; principal; 2024-08-02)
DX: F10.230 Alcohol dependence with withdrawal, uncomplicated (principal); F32.A Depression, unspecified; Z21 Asymptomatic human immunodeficiency virus [HIV] infection status; G47.00 Insomnia, unspecified; I10 Essential (primary) hypertension; E87.6 Hypokalemia; E83.51 Hypocalcemia; R79.89 Other specified abnormal findings of blood chemistry; Z79.899 Other long term (current) drug therapy; Z87.19 Personal history of other diseases of the digestive system; Z86.19 Personal history of other infectious and parasitic diseases
CPT/HCPCS: 36415; 71046-TC-FY; 80048; 80053; 80305; 80307; 81025; 83690; 84132; 84484; 85025; 85027; 85610; 85730; 86359; 86360; 86780; 90656; 93005; 93010; 99283-25; G0008